=== PATIENT | female | born 1980 | race Caucasian/White ===

== ENCOUNTER 2019-11-28 12:08 | Observation (INO) | payer BC ==
[~2019-11-28] VITALS: Ht 160 cm; Wt 88.6 kg
[2019-11-28 12:31] LABS: BASOPHILS # (AUTO) 0.1 X10'3 (0-0.2); EOSINOPHILS # (AUTO) 0.1 X10'3 (0-0.9); EOSINOPHILS % (AUTO) 0.9 % (0-6); HEMATOCRIT 38.6 % (35.0-45.0); HEMOGLOBIN 13.5 g/dl (12.0-16.0); LYMPHOCYTES # (AUTO) 1.9 X10'3 (1.1-4.8); LYMPHOCYTES % (AUTO) 27.6 % (21-51); MEAN CORPUSCULAR HEMOGLOBIN 29.3 PG (27.0-31.0); MEAN CORPUSCULAR VOLUME 83.6 FL (78-98); MEAN PLATELET VOLUME 7.9 FL (7.4-10.4); MONOCYTES # (AUTO) 0.4 X10'3 (0-0.9); MONOCYTES % (AUTO) 5.9 % (2-12); NEUTROPHILS # (AUTO) 4.4 X10'3 (1.8-7.7); NEUTROPHILS % (AUTO) 64.6 % (42-75); PLATELET COUNT 368 X10'3 (140-440); RED BLOOD COUNT 4.62 X10'6 (4.20-5.60); RED CELL DISTRIBUTION WIDTH 13.7 % (11.5-14.5); WHITE BLOOD COUNT 6.8 X10'3 (4.5-11.0)
[2019-11-28 12:45] LABS: PARTIAL THROMBOPLASTIN TIME 32 SECONDS (22-32)
[2019-11-28 12:46] LABS: ALANINE AMINOTRANSFERASE 29 U/L (12-78); ALBUMIN 4.1 G/DL (3.4-5.0); ALKALINE PHOSPHATASE 88 IU/L (46-116); ANION GAP 9 (8-16); ASPARTATE AMINO TRANSFERASE 21 U/L (10-37); BILIRUBIN,TOTAL 0.2 MG/DL (0.1-1.0); BLOOD UREA NITROGEN 8 MG/DL (7-18); BUN/CREATININE RATIO 9.8 (6.6-38.0); CALCIUM 9.1 MG/DL (8.5-10.1); CHLORIDE 103 MMOL/L (99-107); CREATININE 0.82 MG/DL (0.40-0.90); GLUCOSE 107 MG/DL (70-104); POTASSIUM 3.7 MMOL/L (3.5-5.1); SODIUM 140 MMOL/L (135-145); TOTAL CARBON DIOXIDE 28.1 MMOL/L (24-32); TOTAL PROTEIN 8.4 G/DL (6.4-8.2); eGFR 77 ML/MIN
[2019-11-28 12:50] LABS: TROPONIN I < 0.04 NG/ML (0.0-0.05)
[2019-11-28] MEDS ORDERED: aspirin 325mg tablet PO ONE (12:55)
[2019-11-28] MEDS ORDERED: HYDROcodone/acetaminophen 5mg/325mg tablet PO PRN (13:20)
[2019-11-28] MEDS ORDERED: morphine 2 MG/ML inj. syringe IV PRN ×2 (13:20)
[2019-11-28] MEDS ORDERED: acetaminophen 325mg tablet PO PRN ×2 (13:20)
[2019-11-28] MEDS ORDERED: ondansetron/PF 4mg/2ml inj IV PRN (13:20)
[2019-11-28] MEDS ORDERED: magnesium hydroxide 30ml (MOM) UD suspension PO PRN (13:20)
[2019-11-28] MEDS ORDERED: mag hydrox/Alum hydrox/simeth 30ml oral suspension PO PRN (13:20)
[2019-11-28 13:51] LABS: HEMOGLOBIN A1C 5.5 % (4.5-6.2)
[2019-11-28 13:52] LABS: CHOL/HDL RATIO 4.4 (0.00-4.99); CHOLESTEROL 209 MG/DL (0-200); HDL CHOLESTEROL 47 MG/DL (35-60); LDL CHOLESTEROL 134 MG/DL (50-100); TRIGLYCERIDES 141 MG/DL (20-135)
[2019-11-28] MEDS ORDERED: MONT10TA21 PO (14:03)
[2019-11-28] MEDS ORDERED: LOSA25TA41 PO (14:03)
[2019-11-28 14:05] LABS: URINE HCG NEGATIVE (NEG)
[2019-11-28 14:09] LABS: CLARITY,URINE CLEAR (Clear); COLOR,URINE YELLOW (Yellow); GLUCOSE, URINE NEGATIVE (Neg); KETONES,URINE NEGATIVE (Neg); LEUKOCYTE ESTERASE ,URINE NEGATIVE (Neg); NITRITES, URINE NEGATIVE (Neg); OCCULT BLOOD,URINE NEGATIVE (Neg); PH,URINE 5.5 (4.8-8.0); PROTEIN,URINE NEGATIVE (Neg); UROBILINOGEN,URINE 0.2 E.U/dL (0.2-1.0)
[2019-11-28 14:11] LABS: UA COLLECTION TYPE CLN CATCH MIDSTREAM
[2019-11-28 14:30] VITALS: BP 182/86
[2019-11-28] MEDS ORDERED: LORazepam 2 mg/ml vial IV ONE (14:45)
[2019-11-28] MEDS: atorvastatin 20mg tablet PO SCH (15:31)
[2019-11-28] MEDS ORDERED: iohexol 350MG/ML 100ml bottle IV ONE (16:57)
[2019-11-28 18:00] VITALS: BP 150/91
--- NOTE | 2019-11-28 18:43 | NUR ---
Patient report given to Ramírez COLIN
--- NOTE | 2019-11-28 19:00 | NUR ---
Patient in room [facility]TH[facility] 4012. I have received report from Madyson Garcia RN and had the opportunity to ask questions and assume patient care.
[2019-11-28 22:00] VITALS: BP 149/84
[2019-11-29 02:00] VITALS: BP 135/85
[2019-11-29 05:54] LABS: CHOL/HDL RATIO 4.2 (0.00-4.99); CHOLESTEROL 175 MG/DL (0-200); HDL CHOLESTEROL 42 MG/DL (35-60); LDL CHOLESTEROL 117 MG/DL (50-100); TRIGLYCERIDES 92 MG/DL (20-135)
[2019-11-29 06:00] VITALS: BP 142/74
[2019-11-29] MEDS ORDERED: aspirin 325mg tablet, delayed-release (Ecotrin) PO SCH (08:00)
[2019-11-29] MEDS: atorvastatin 20mg tablet PO SCH (08:14)
[2019-11-29 10:00] VITALS: BP 159/92
[2019-11-29] MEDS ORDERED: FLU VACC QS2019-20 36MOS UP/PF 60 MCG/0.5 ML SYRINGE IMVAC ONE (10:00)
[2019-11-29] MEDS ORDERED: amLODIPine 5mg tablet PO ONE (10:05)
--- NOTE | 2019-11-29 10:55 | NUR ---
PAGER ID: [phone] MESSAGE: [id number] Sorin Gonzales Telemetry just called to tell me the patients HR has dipped into the 40's last night and at shift change. Angelica [id number]
[2019-11-29] MEDS ORDERED: ASPI81TA52 PO (11:26)
[2019-11-29] MEDS ORDERED: ATOR20TA PO (11:26)
== END 2019-11-29 12:10 | disposition home or self-care (01) ==
LOC: ER 12:09 → ED HOLD 13:16 → ORTHO 4S 14:54
PROVIDERS: ADMIT Internal Medicine; ATTEND Internal Medicine
DX: R20.2 Paresthesia of skin (principal); H53.2 Diplopia; R29.810 Facial weakness; I10 Essential (primary) hypertension; F41.9 Anxiety disorder, unspecified; J45.909 Unspecified asthma, uncomplicated; Z23 Encounter for immunization; Z87.891 Personal history of nicotine dependence; Z79.899 Other long term (current) drug therapy; Z88.8 Allergy status to other drugs, medicaments and biological substances
CPT/HCPCS: 36415; 70450; 70496; 70498; 70544; 70551; 71045; 72141; 80053; 80061; 81003; 81025; 82948; 83036; 83880; 84443; 84484; 85025; 85610; 85651; 85730; 87081; 90471; 93306; 96374; 99284; G0378; J2060; Q2037; Q9967